=== PATIENT | male | born 1980 | race Caucasian/White ===

== ENCOUNTER 2020-10-10 05:43 | Outpatient (RCR) | payer OTHER ==
[~2020-10-10] VITALS: Ht 180 cm; Wt 86.3 kg
[2020-10-10] MEDS ORDERED: OMEP40CA27 PO (13:08)
[2020-10-10] MEDS ORDERED: CETI10TA17 PO (13:08)
[2020-10-10] MEDS ORDERED: FLUT9.9S NS (13:08)
[2020-10-10] MEDS ORDERED: METH5TAB4 PO (13:08)
[2020-10-10] MEDS ORDERED: CIME200T14 PO (13:08)
[2020-10-10] MEDS ORDERED: AMIT25TA9 PO (13:08)
[2020-10-10] MEDS ORDERED: MULT-1136 PO (13:08)
[2020-10-10] MEDS ORDERED: ALPR1TAB2 PO (13:08)
[2020-10-10] MEDS ORDERED: METH10TA3 PO (13:08)
== END 2020-10-10 13:51 | disposition home or self-care (01) ==
LOC: PREOP 05:43
PROVIDERS: ATTEND Otolaryngology Otolaryngology/Facial Plastic Surgery
DX: Z01.818 Encounter for other preprocedural examination (principal); J38.1 Polyp of vocal cord and larynx

== ENCOUNTER 2020-10-14 06:41 | Day surgery (SDC) | payer OTHER ==
[2020-10-14] VITALS (11 sets, daily range): BP systolic 111–130; BP diastolic 80–97
[~2020-10-14] VITALS: Ht 180 cm; Wt 86.3 kg
[~2020-10-14 06:41] MED LIST: ALPR1TAB2 PO; AMIT25TA9 PO; CETI10TA17 PO; CIME200T14 PO; FLUT9.9S NS; METH10TA3 PO; METH5TAB4 PO; MULT-1136 PO; OMEP40CA27 PO
[2020-10-14] MEDS ORDERED: LACTATED RINGERS 1,000 ML IV PRN (07:00)
[2020-10-14] MEDS ORDERED: LIDOCAINE/EPI 1%-1:100,000 (XYLOCAINE) 20ML ONE (07:31)
[2020-10-14] MEDS ORDERED: ONDANSETRON 4 MG/2 ML (SDV) Z0FRAN ONE (08:03)
[2020-10-14] MEDS ORDERED: fentaNYL INJECTION 100 MCG/2 ML AMP ONE (08:03)
[2020-10-14] MEDS ORDERED: SEVOFLURANE (ULTANE) 15 ML INHAL SOLN ONE (08:03)
[2020-10-14] MEDS ORDERED: proPOfol 200 MG/20 ML (DIPRIVAN) VIAL IV ONE (08:03)
[2020-10-14] MEDS ORDERED: MIDAZOLAM 2 MG/2 ML (VERSED) VIAL ONE (08:03)
[2020-10-14] MEDS ORDERED: LIDOCAINE PF 2% 5 ML (XYLOCAINE) VIAL ONE (08:03)
[2020-10-14] MEDS ORDERED: ROCURONIUM 10 MG/ML 5 ML SYRINGE IV ONE (08:03)
--- NOTE | 2020-10-14 08:54 | Progress Note-Pre Operative ---
Pre-Operative Progress Note H&P Reviewed The H&P was reviewed, patient examined and no changes noted. Date Seen by Provider: Oct 14, 2020 Time Seen by Provider: 08:45 Date H&P Reviewed: Oct 14, 2020 Time H&P Reviewed: 08:45 Pre-Operative Diagnosis: Right Vocal Cord Mass, Hoarseness JESUS BLAKE MD Oct 14, 2020 08:54
--- NOTE | 2020-10-14 09:22 | Progress Note-Post Operative ---
Post-Operative Progess Note Surgeon (s)/Computational Chemist (s) Surgeon JESUS BLAKE MD Computational Chemist n/a Pre-Operative Diagnosis Right Vocal Cord Mass, Hoarseness Post-Operative Diagnosis same Post-Op Procedure Note Date of Procedure: Oct 14, 2020 Name of Procedure Performed: Direct Laryngosocpy with Removal of Right Vocal Cord Lesion Description & Findings Description and Findings: n/a Anesthesia Type get Estimated Blood Loss minimal Packing none. Specimen(s) collected/removed right vocal cord lesion to path for frozen JESUS BLAKE MD Oct 14, 2020 09:22
[2020-10-14] MEDS ORDERED: HYDROcodone/APAP 5 MG/325 MG (LORTAB) TAB PO PRN (09:30)
[2020-10-14] MEDS ORDERED: ACETAMINOPHEN 325 MG TABLET PO PRN (09:30)
[2020-10-14] MEDS ORDERED: PROMETHAZINE INJ 25 MG/ML (PHENERGAN) AMP IV PRN (09:30)
[2020-10-14] MEDS ORDERED: NEOSTIGMINE 3 MG/3 ML VIAL ONE (10:07)
[2020-10-14] MEDS ORDERED: GLYCOPYRROLATE 0.2 MG/ML (ROBINUL) 2 ML VIAL ONE (10:07)
[2020-10-14] MEDS ORDERED: ACHD5005 PO (11:00)
--- NOTE | 2020-10-14 11:00 | Anesthesia-General Post-Op ---
General Patient Condition Mental Status/LOC: Same as Preop Cardiovascular: Satisfactory Nausea/Vomiting: Absent Respiratory: Satisfactory Pain: Controlled Complications: Absent Post Op Complications Complications None Follow Up Care/Instructions Patient Instructions None needed. Anesthesia/Patient Condition Patient Condition Patient is doing well, no complaints, stable vital signs, no apparent adverse anesthesia problems. No complications reported per nursing. WES RAMIREZ CRNA Oct 14, 2020 11:00
== END 2020-10-14 12:00 | disposition home or self-care (01) ==
LOC: SDC 06:41
PROVIDERS: ATTEND Otolaryngology Otolaryngology/Facial Plastic Surgery
DX: D18.09 Hemangioma of other sites (principal); D14.1 Benign neoplasm of larynx; F41.9 Anxiety disorder, unspecified; F90.9 Attention-deficit hyperactivity disorder, unspecified type; G62.9 Polyneuropathy, unspecified; Z79.899 Other long term (current) drug therapy
CPT/HCPCS: 87081; 88305; 88331